=== PATIENT | male | born 1955 | race Caucasian/White ===

== ENCOUNTER 2020-07-26 11:07 | Emergency (ER) | payer MEDICARE, SELFPAY ==
[2020-07-26 11:21] VITALS: BP 139/82; PULSE 104; RESP 14; TEMP 37.2; O2SAT 90; O2SAT 92; BMI 23.1
--- NOTE | 2020-07-26 11:32 | W.ED.COVID ---
HPI - COVID General: Chief Complaint: COVID symptoms Stated Complaint: COVID SYMPTOMS Time Seen by Provider: 07/26/20 11:25 Triage information: Has fever, cough or shortness of breath. Exposure to COVID + person last 14 days History of Present Illness: HPI Narrative: 64-year-old male presents emergency room complaining of shortness of breath and cough. He states he was tested 2 weeks ago for Covid shortness of breath is actually gotten worse he has not had any fever the myalgias have also resolved no diarrhea. Cough has been nonproductive. MD complaint: known COVID positive Prior covid testing: yes, results known COVID 19 common symptoms: positive fever(s), cough, non-productive cough and dyspnea; negative throat pain, nasal congestion, nausea, vomiting or diarrhea COVID 19 other sytmptoms: negative chest pain Severity: moderate Pertinent comorbid conditions: hypertension Treatment prior to arrival: none COVID Results: SARS-CoV-2 Antigen (Rapid) Negative (Negative) 07/26/20 15:49 07/26/20 Review of Systems Const: Reports: fever(s) ENMT: Denies: throat pain, ear or mastoid pain, nasal discharge or nasal congestion Card: Denies: chest pain, edema, dyspnea on exertion or orthopnea Resp: Reports: dyspnea and non-productive cough GI: Denies: abdominal pain, nausea, vomiting, hematemesis, coffee ground emesis, diarrhea, constipation, bloating, hematochezia or melena : Denies: flank pain, dysuria, urinary frequency or urinary urgency Skin/Breast: Denies: rash or pruritus Physical Exam Const: COMMON NORMALS: no acute distress GENERAL APPEARANCE: cooperative and comfortable ORIENTATION/CONSCIOUSNESS: Yes awake, Yes oriented to person, Yes oriented to place and Yes oriented to time HENMT: COMMON NORMALS: normocephalic, atraumatic and hearing grossly normal bilaterally HEAD & SCALP: normocephalic and atraumatic Eye: COMMON NORMALS: Equal, round and reactive pupils present, EOMs intact bilaterally, conjunctivae normal and no scleral icterus CONJUNCTIVA: Yes conjunctivae normal PUPIL: Yes Equal, round and reactive pupils present Neck/C-Spine: COMMON NORMALS: full ROM, no lymphadenopathy, supple and no JVD Lymph: LYMPHATIC: no lymphadenopathy noted and no lymphedema noted Resp: COMMON NORMALS: normal respiratory effort, No retractions, No use of accessory muscles and clear to auscultation bilaterally AUSCULTATION: clear to auscultation bilaterally Cardio: COMMON NORMALS: no JVD, regular rate, regular rhythm and No murmurs present (Cardio) RATE: regular rate RHYTHM: regular rhythm GI: COMMON NORMALS: Soft to palpation and No hepatosplenomegaly present AUSCULTATION: Yes normoactive bowel sounds PALPATION: Yes Soft to palpation, No Tenderness to palpation present (GI), No Guarding due to palpation present (GI) and Yes No hepatosplenomegaly present Extremity: COMMON NORMALS: normal to inspection, capillary refill normal, no clubbing, cyanosis or edema, no calf tenderness and no pedal edema Neuro: SENSORIUM/ORIENTATION: Yes oriented to person, Yes oriented to place and Yes oriented to time Skin: COMMON NORMALS: no rashes or lesions noted GENERAL SKIN EXAM: no rashes or lesions noted Course Vital Signs: Vital signs: Vital Signs Temperature 98.9 F 07/26/20 11:21 Pulse Rate 104 H 07/26/20 11:21 Respiratory Rate 14 07/26/20 11:21 Blood Pressure 139/82 07/26/20 11:21 Pulse Oximetry 90 07/26/20 11:21 MDM - COVID MDM Narrative Medical decision making narrative: Patient actually seems to be rather late in the course of care. He had told us initially that he had been tested at [facility] but he had not his had. We did rapid test him which was negative. We will get a [facility] swab on him. He does qualify for oxygen. We will go ahead and send him home with that we can try to get him back in to see his primary care doctor in the next 1 to 2 days. Lab Data Attestation: I reviewed the patient's lab results. Result diagrams: 07/26/20 11:44 07/26/20 11:44 Labs: Lab Results 07/26/20 07/26/20 07/26/20 Range/Units 11:44 11:44 11:44 WBC 6.0 (4.0-10.0) 10^3/uL RBC 4.92 (4.1-5.3) 10^6/uL Hgb 14.4 (11.7-16.6) g/dL Hct 43.0 (42.0-52.0) % MCV 87.4 (80-94) fL MCH 29.3 (28.0-34.0) pg MCHC 33.5 (30.0-36.0) g/dL RDW 13.2 (12.1-15.1) % Plt Count 240 (130-400) 10^3/cmm MPV 9.5 (7.4-10.4) fL Neut % (Auto) 83.5 % Lymph % (Auto) 9.1 % [place] % (Auto) 6.2 % Eos % (Auto) 0.3 % Baso % (Auto) 0.2 % Neut # (Auto) 4.98 (1.8-7.7) 10^3/uL Lymph # (Auto) 0.5 L (0.8-4.8) 10^3/uL [place] # (Auto) 0.4 (0.2-0.9) 10^3/uL Eos # (Auto) 0.0 (0.0-0.8) 10^3/uL Baso # (Auto) 0.0 (0.0-0.1) 10^3/uL Nucleated RBC % (auto) 0 % Nucleated RBCs # 0.0 /100WBC Specimen Type Sample Site ABG pH (7.35-7.45) ABG pCO2 (35-45) mmHg ABG pO2 (80.0-100.0) mmHg ABG HCO3 (22-26) mmol/L ABG O2 Saturation ABG Base Excess (-2.0-2.0) mmol/L Martinez Test A-a O2 Gradient (5-10) mmHg Hematocrit (42-52) % Hgb O2 Saturation (95-100) % Carboxyhemoglobin (0.4-20.1) %THgb Methemoglobin (0.4-1.5) % Total Hemoglobin (14-18) g/dL Ionized Calcium (1.1-1.4) mmol/L O2 Delivery Device FiO2 % Section Plotter Operator ID Blood Gas Notified Time Sodium 136 (136-145) mmol/L Potassium 3.4 L (3.5-5.1) mmol/L Chloride 94 L (98-107) mmol/L Carbon Dioxide 33 H (22-29) mmol/L Anion Gap 12.4 (5-19) BUN 26 H (8-23) mg/dL Creatinine 1.2 (0.7-1.2) mg/dL GFR Calculation 60.8 L (90-130) mL/min Glucose 108 (65-115) mg/dL Calculated Osmolality 287 (285-295) mOsm/kg Lactic Acid 1.3 (0.5-2.2) mmol/L Calcium 8.8 (8.5-10.5) mg/dL Total Bilirubin 1.0 (0.15-1.2) mg/dL AST 72 H (0-40) U/L ALT 87 H (0-41) U/L Alkaline Phosphatase 153 H (40-130) IU/L Troponin T Baseline (0-15) ng/L Troponin T 120 Minute (0-15) ng/L Delta Troponin T (0-10) ABS# Total Protein 6.7 (6.6-8.7) g/dL Albumin 4.0 (3.5-5.2) g/dL Globulin 2.7 (1.3-4.6) g/dL Urine Color (Yellow) Urine Appearance (CLEAR) Urine pH (5-7) Ur Specific Theresa (1.005-1.030) Urine Protein (Negative) Urine Glucose (UA) (Normal) Urine Ketones (Negative) Urine Blood (Negative) Urine Nitrate (Negative) Urine Bilirubin (Negative) Urine Urobilinogen (Negative) mg/dL Ur Leukocyte Esterase (Negative) SARS-CoV-2 Ag (Rapid) (Negative) 07/26/20 07/26/20 07/26/20 Range/Units 11:44 12:42 13:25 WBC (4.0-10.0) 10^3/uL RBC (4.1-5.3) 10^6/uL Hgb (11.7-16.6) g/dL Hct (42.0-52.0) % MCV (80-94) fL MCH (28.0-34.0) pg MCHC (30.0-36.0) g/dL RDW (12.1-15.1) % Plt Count (130-400) 10^3/cmm MPV (7.4-10.4) fL Neut % (Auto) % Lymph % (Auto) % [place] % (Auto) % Eos % (Auto) % Baso % (Auto) % Neut # (Auto) (1.8-7.7) 10^3/uL Lymph # (Auto) (0.8-4.8) 10^3/uL [place] # (Auto) (0.2-0.9) 10^3/uL Eos # (Auto) (0.0-0.8) 10^3/uL Baso # (Auto) (0.0-0.1) 10^3/uL Nucleated RBC % (auto) % Nucleated RBCs # /100WBC Specimen Type Arterial Sample Site Lr ABG pH 7.50 H (7.35-7.45) ABG pCO2 39.5 (35-45) mmHg ABG pO2 61.5 L (80.0-100.0) mmHg ABG HCO3 30.8 H (22-26) mmol/L ABG O2 Saturation 91.5 ABG Base Excess 7.0 H (-2.0-2.0) mmol/L Martinez Test Pos A-a O2 Gradient 38.9 H (5-10) mmHg Hematocrit 43.3 (42-52) % Hgb O2 Saturation 90.3 L (95-100) % Carboxyhemoglobin 0.9 (0.4-20.1) %THgb Methemoglobin 0.4 (0.4-1.5) % Total Hemoglobin 14.1 (14-18) g/dL Ionized Calcium 1.1 (1.1-1.4) mmol/L O2 Delivery Device Ra FiO2 21.0 % Section Plotter Operator ID Glc Blood Gas Notified Time 1300 Sodium 137.0 (136-145) mmol/L Potassium 3.0 L (3.5-5.1) mmol/L Chloride (98-107) mmol/L Carbon Dioxide (22-29) mmol/L Anion Gap (5-19) BUN (8-23) mg/dL Creatinine (0.7-1.2) mg/dL GFR Calculation (90-130) mL/min Glucose 113.0 (65-115) mg/dL Calculated Osmolality (285-295) mOsm/kg Lactic Acid (0.5-2.2) mmol/L Calcium (8.5-10.5) mg/dL Total Bilirubin (0.15-1.2) mg/dL AST (0-40) U/L ALT (0-41) U/L Alkaline Phosphatase (40-130) IU/L Troponin T Baseline 12 (0-15) ng/L Troponin T 120 Minute (0-15) ng/L Delta Troponin T (0-10) ABS# Total Protein (6.6-8.7) g/dL Albumin (3.5-5.2) g/dL Globulin (1.3-4.6) g/dL Urine Color Yellow (Yellow) Urine Appearance Clear (CLEAR) Urine pH 5 (5-7) Ur Specific Theresa 1.015 (1.005-1.030) Urine Protein Neg (Negative) Urine Glucose (UA) Norm (Normal) Urine Ketones Negative (Negative) Urine Blood Neg (Negative) Urine Nitrate Negative (Negative) Urine Bilirubin Neg (Negative) Urine Urobilinogen 1 H (Negative) mg/dL Ur Leukocyte Esterase Negative (Negative) SARS-CoV-2 Ag (Rapid) (Negative) 07/26/20 07/26/20 Range/Units 15:10 15:49 WBC (4.0-10.0) 10^3/uL RBC (4.1-5.3) 10^6/uL Hgb (11.7-16.6) g/dL Hct (42.0-52.0) % MCV (80-94) fL MCH (28.0-34.0) pg MCHC (30.0-36.0) g/dL RDW (12.1-15.1) % Plt Count (130-400) 10^3/cmm MPV (7.4-10.4) fL Neut % (Auto) % Lymph % (Auto) % [place] % (Auto) % Eos % (Auto) % Baso % (Auto) % Neut # (Auto) (1.8-7.7) 10^3/uL Lymph # (Auto) (0.8-4.8) 10^3/uL [place] # (Auto) (0.2-0.9) 10^3/uL Eos # (Auto) (0.0-0.8) 10^3/uL Baso # (Auto) (0.0-0.1) 10^3/uL Nucleated RBC % (auto) % Nucleated RBCs # /100WBC Specimen Type Sample Site ABG pH (7.35-7.45) ABG pCO2 (35-45) mmHg ABG pO2 (80.0-100.0) mmHg ABG HCO3 (22-26) mmol/L ABG O2 Saturation ABG Base Excess (-2.0-2.0) mmol/L Martinez Test A-a O2 Gradient (5-10) mmHg Hematocrit (42-52) % Hgb O2 Saturation (95-100) % Carboxyhemoglobin (0.4-20.1) %THgb Methemoglobin (0.4-1.5) % Total Hemoglobin (14-18) g/dL Ionized Calcium (1.1-1.4) mmol/L O2 Delivery Device FiO2 % Section Plotter Operator ID Blood Gas Notified Time Sodium (136-145) mmol/L Potassium (3.5-5.1) mmol/L Chloride (98-107) mmol/L Carbon Dioxide (22-29) mmol/L Anion Gap (5-19) BUN (8-23) mg/dL Creatinine (0.7-1.2) mg/dL GFR Calculation (90-130) mL/min Glucose (65-115) mg/dL Calculated Osmolality (285-295) mOsm/kg Lactic Acid (0.5-2.2) mmol/L Calcium (8.5-10.5) mg/dL Total Bilirubin (0.15-1.2) mg/dL AST (0-40) U/L ALT (0-41) U/L Alkaline Phosphatase (40-130) IU/L Troponin T Baseline (0-15) ng/L Troponin T 120 Minute 12.10 (0-15) ng/L Delta Troponin T 0.10 (0-10) ABS# Total Protein (6.6-8.7) g/dL Albumin (3.5-5.2) g/dL Globulin (1.3-4.6) g/dL Urine Color (Yellow) Urine Appearance (CLEAR) Urine pH (5-7) Ur Specific Theresa (1.005-1.030) Urine Protein (Negative) Urine Glucose (UA) (Normal) Urine Ketones (Negative) Urine Blood (Negative) Urine Nitrate (Negative) Urine Bilirubin (Negative) Urine Urobilinogen (Negative) mg/dL Ur Leukocyte Esterase (Negative) SARS-CoV-2 Ag (Rapid) Negative (Negative) COVID Results: SARS-CoV-2 Antigen (Rapid) Negative (Negative) 07/26/20 15:49 07/26/20 Discharge Plan Discharge Patient Disposition: Home Clinical Impression: COVID-19 virus infection Condition: Stable Prescriptions: New dexamethasone 6 mg tablet 6 mg PO DAILY Qty: 7 RF: 0 No Action aspirin 81 mg Tablet,Delayed Release (Dr/Ec) 81 mg PO DAILY RF: 0 Tylenol Extra Strength 500 mg Tablet 1,000 mg PO PRN RF: 0 losartan 25 mg tablet 50 mg PO DAILY RF: 0 Advil 200 mg Tablet 600 mg PO PRN RF: 0 hydrochlorothiazide 25 mg tablet 25 mg PO DAILY RF: 0 fluticasone propionate 50 mcg/actuation spray,suspension 2 spray INTRANASAL DAILY PRN (Reason: unknown) RF: 0 sildenafil (pulm.hypertension) 20 mg tablet 20 - 80 mg PO PRN RF: 0 Adult Multivitamin Gummies 200 mcg Tablet,Chewable 400 mcg PO DAILY RF: 0 Cough Med 5 - 10 ml PO PRN RF: 0 Discharge Orders: Discharge Order (Routine); Ordered 07/26/20 Ordered By: Jeremy Rich Other Ambulatory Orders: DME: Oxygen (Order) Location: None Selected Ordered By: Jeremy Rich Discharge Diet: Usual diet Discharge Activity: Increase activity as tolerated Activity Restrictions/Additional Instructions: Follow-up with your primary care provider in 1 to 2 days. Return if you have any further problems breathing. Coding Level of Care Code ED Slicer Machine Operator for Jada Fwd Exam Comprehensive
--- NOTE | 2020-07-26 11:41 | CT_ITS ---
WS: [id number] CT CHEST ANGIOGRAPHY WITH REFORMATS HISTORY: Dyspnea,, tachycardia TECHNIQUE: Contiguous axial images are obtained through the chest during arterial injection of intrav enous contrast. Images are reconstructed to evaluate the pulmonary arteries. MIP imaging also reviewe d. All CT scans at [facility] use at least one of these dose optimization techniques: aut omated exposure control; mA and/or kV adjustment per patient size (includes targeted exams where dose is matched to clinical indication); or iterative reconstruction. CONTRAST: Omnipaque 350; 95 mL IV. DLP: 591.68 mGy.cm COMPARISON: None available. Excellent opacification of the pulmonary arteries. Normal size pulmonary artery with no pulmonary emb cooper. Moderate atherosclerosis of aorta. No aneurysm or dissection. Hyperinflated lungs. There are bilateral multilobar areas of groundglass opacification with increasin g atelectasis at the lung bases. No pleural effusion. Mildly prominent bilateral hilar lymph nodes me asuring up to 14 mm in diameter. Small hiatal hernia. Hepatic steatosis. : Physis without acute cholecystitis. Atherosclerosis continues into the suprarenal aorta. No osteoblastic or osteolytic bone disease. CT/CT angio chest PE protcl [id number] IMPRESSION: 1. No pulmonary embolism. 2. Multilobar areas of groundglass attenuation. Typical for Covid 19. 3. Chronic emphysema. Next line cholelithiasis without acute cholecystitis. 4. Indeterminate bilateral hilar lymph nodes may be reactive. 5. Mild cardiomegaly.
--- NOTE | 2020-07-26 11:42 | ECG_ITS ---
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 Measurements Intervals [place] Rate: 90 P: 37 W[place]: 167 QRS: -8 QRSD: 91 T: 42 QT: 360 QTc: 441 Interpretive Statements SINUS RHYTHM NONSPECIFIC T-WAVE ABNORMALITY No previous ECG available for comparison Electronically Signed On 07-27-2020 7:18:02 CDT by Stephy Joy M.D. [email or web address] Do Now [facility] Don'tgrand [facility].[employer]/store/[id number] f
--- NOTE | 2020-07-26 11:42 | XR_ITS ---
WS: [id number] Exam: XR chest 1V portable [id number] Date/Time of Exam: 07/26/2020 11:42 AM Reason For Exam: dyspnea/cough No priors. Patchy groundglass infiltrate in the right upper lobe could represent active pneumonia or chronic parisa nge. Remaining lung figueroa are clear. Normal heart size. The mediastinum and bony thorax are intact. XR/XR chest 1V portable [id number] IMPRESSION: 1. Patchy groundglass infiltrates in the right upper lobe that may represent ac tive pneumonia or chronic change.
[2020-07-26 12:16] LABS: Basophils % 0.2 %; Eosinophils % 0.3 %; Hemoglobin 14.4 g/dL (11.7-16.6); Lymphocytes # 0.5 10^3/uL (0.8-4.8); Lymphocytes % 9.1 %; Mean Corpuscular HGB Conc 33.5 g/dL (30.0-36.0); Mean Corpuscular Hemoglobin 29.3 pg (28.0-34.0); Mean Corpuscular Volume 87.4 fL (80-94); Mean Platelet Volume 9.5 fL (7.4-10.4); Monocytes # 0.4 10^3/uL (0.2-0.9); Monocytes % 6.2 %; Neutrophils # 4.98 10^3/uL (1.8-7.7); Neutrophils % 83.5 %; Nucleated Red Blood Cells % 0 %; Platelet Count 240 10^3/cmm (130-400); Red Blood Count 4.92 10^6/uL (4.1-5.3); Red Cell Distribution Width 13.2 % (12.1-15.1)
[2020-07-26 12:23] LABS: Lactic Sepsis W/Reflex 1.3 mmol/L (0.5-2.2)
[2020-07-26 12:24] LABS: Alanine Aminotransferase 87 U/L (0-41); Alkaline Phosphatase 153 IU/L (40-130); Anion Gap 12.4 (5-19); Aspartate Amino Transferase 72 U/L (0-40); Blood Urea Nitrogen 26 mg/dL (8-23); Calcium 8.8 mg/dL (8.5-10.5); Carbon Dioxide 33 mmol/L (22-29); Chloride 94 mmol/L (98-107); Globulin 2.7 g/dL (1.3-4.6); Glomerular Filtration Rate 60.8 mL/min (90-130); Glucose 108 mg/dL (65-115); Osmolality Calculated 287 mOsm/kg (285-295); Potassium 3.4 mmol/L (3.5-5.1); Sodium 136 mmol/L (136-145); Total Protein 6.7 g/dL (6.6-8.7)
[2020-07-26 12:25] LABS: Troponin(5th) Baseline 12 ng/L (0-15)
[2020-07-26 12:54] LABS: ABG PCO2 39.5 mmHg (35-45); Blood Gas Allen Test POS; Blood Gas Operator Identificat GLC; HCO3 ABG 30.8 mmol/L (22-26); Oxygen Saturation ABG 91.5; PO2 ABG 61.5 mmHg (80.0-100.0)
[2020-07-26 12:55] LABS: Alveolar-Arterial Oxygen Gradi 38.9 mmHg (5-10); Arterial Blood Gas Hematocrit 43.3 % (42-52); Blood Gas CCRB Time 1300; Blood Gas Sample Site LR; Blood Gas Sample Type Arterial; Ionized Calcium Level - ABG 1.1 mmol/L (1.1-1.4); Oxygen Device RA; Total Hemoglobin 14.1 g/dL (14-18)
[2020-07-26 12:56] LABS: Carboxyhemoglobin 0.9 %THgb (0.4-20.1); HGB O2 Sat 90.3 % (95-100); Methemoglobin 0.4 % (0.4-1.5)
[2020-07-26] MEDS: iohexol 350 mg/mL 100 mL Btl IV (12:58)
[2020-07-26 13:47] LABS: Add Urine Microscopic? NO; Bilirubin Urine Neg (Negative); Blood Urine Neg (Negative); Glucose Urine UA Norm (Normal); Ketones Urine Negative (Negative); Leukocyte Esterase Urine Negative (Negative); Nitrate Urine Negative (Negative); Protein Urine Neg (Negative); Specific Gravity, Urine 1.015 (1.005-1.030); Urine Appearance Clear (CLEAR); Urine Color Yellow (Yellow); Urobilinogen Urine 1 mg/dL (Negative); pH Urine 5 (5-7)
[2020-07-26 17:01] LABS: SARS Covid-2 Antigen Negative (Negative)
--- NOTE | 2020-07-26 17:31 | PC.NURSE ---
Read and agree with assessment.
[2020-07-26 18:08] VITALS: BP 140/75; PULSE 78; RESP 18; O2SAT 97
--- NOTE | 2020-07-28 10:34 | DCPLANNER ---
circuit manager had message to speak with patient about a follow up appointment. circuit manager called [phone], phone number was no longer in service. circuit manager then called [phone], was told that no one by the name of the patient was there, wrong number. circuit manager unable to speak with patient or leave a voicemail for patient.
[2020-07-28 21:52] LABS: Quest SARS-CoV-2 RNA DETECTED (NOT DETECTED)
--- NOTE | 2020-07-29 16:41 | PC.NURSE ---
this nurse unable to reach pt at any of his numbers listed on face sheet to give COVID results. Letter mailed to inform Pt of results.
--- NOTE | 2020-08-03 08:37 | PC.NURSE ---
pt's called back after receiving letter. results given to pt's .
== END 2020-07-26 18:10 | disposition home or self-care (01) ==
PROVIDERS: Emergency Provider Family Medicine; PCP General Practice
DX: U07.1 COVID-19 (principal); Z79.82 Long term (current) use of aspirin
CPT/HCPCS: 12345; 36600; 71045; 71275; 80051; 80053; 81003; 82810; 83605; 83986; 84484; 85025; 87426; 87635; 93005; 96374; 99284; Q9967

== ENCOUNTER → 2023-11-20 12:40 | Outpatient (BNVA) | payer MEDICARE, SELFPAY | PROVIDERS: PCP Internal Medicine; Referring Provider Internal Medicine; Visit Provider Specialist | DX: R20.0 Anesthesia of skin (principal); R20.2 Paresthesia of skin | CPT/HCPCS: 95911 ==

== ENCOUNTER → 2024-03-12 10:11 | Outpatient (BNVA) | payer MEDICARE, SELFPAY | PROVIDERS: PCP Internal Medicine; Visit Provider Nurse Practitioner Family | DX: D48.5 Neoplasm of uncertain behavior of skin (principal); L57.0 Actinic keratosis; B07.8 Other viral warts; L82.1 Other seborrheic keratosis; D22.5 Melanocytic nevi of trunk; L91.8 Other hypertrophic disorders of the skin | CPT/HCPCS: 11102; 17000; 17110; 99203 ==

== ENCOUNTER → 2024-05-08 11:36 | Outpatient (BNVA) | payer MEDICARE, SELFPAY | PROVIDERS: PCP Internal Medicine; Visit Provider Podiatrist Foot & Ankle Surgery | DX: Q82.8 Other specified congenital malformations of skin; Q66.71 Congenital pes cavus, right foot | CPT/HCPCS: 17110; 73630; 99203 ==

== ENCOUNTER → 2024-06-04 11:28 | Outpatient (BNVA) | payer MEDICARE, SELFPAY | PROVIDERS: PCP Internal Medicine; Visit Provider Podiatrist Foot & Ankle Surgery | DX: Q82.8 Other specified congenital malformations of skin (principal); Q66.71 Congenital pes cavus, right foot | CPT/HCPCS: 99213 ==

== ENCOUNTER 2024-07-08 11:42 | Outpatient (CLI) | payer MEDICARE, SELFPAY ==
--- NOTE | 2024-07-08 | ECG_ITS ---
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 Interpretive Statements EXERCISE STRESS TEST EXERCISE DATA: The patient was exercised by Lee protocol. Baseline heart rate was 71 beats per minute. Baseline blood pressure was 159/95 millimeters of mercury. Maximal predicted heart rate [id number] beats per minute. Maximum heart rate achieved was 132 which was 87 % of the maximum predicted heart rate. Maximum blood pressure tay066/77 millimeters of mercury. Total exercise time was 6 minutes and 29 seconds. Maximum METs achieved was 10.2. The reason for ending the test was maximal effort achieved. The patient complained of shortness of breath during the stress test, which then resolved at the end of the test. ELECTROCARDIOGRAM: BASELINE: Showed sinus rhythm, normal axis, no significant ST-T changes at the baseline noted. [] EXERCISE: At the peak exercise level, [] significant [address] depressions seen in leads V2-6 and I and aVL. Non specific ST elevation seen in the lead aVR. RECOVERY: During the recovery period, heart rate dropped appropriately. T wave inversions were seen in leads V4 to V6 and I and aVL. CONCLUSION: 1. Exercise capacity is good 2. Heart rate response was appropriate. 3. Blood pressure response was appropriate. 4. Symptoms not suggestive of ischemia. 5. Stress test is abnormal suggesting ischemia. Electronically Signed On 07-11-2024 20:35:20 CDT by Juan Gray M.D. [id number]
[2024-07-08 11:50] VITALS: BMI 25.0
[2024-07-08 12:07] VITALS: BP 173/87; PULSE 84
== END 2024-07-08 11:43 | disposition home or self-care (01) ==
PROVIDERS: PCP Internal Medicine; Visit Provider Nurse Practitioner Family
DX: R07.9 Chest pain, unspecified (principal); R06.09 Other forms of dyspnea
CPT/HCPCS: 93017

== ENCOUNTER 2024-11-29 10:25 | Outpatient (RCR) | payer MEDICARE, SELFPAY | END 2024-12-29 23:59 | disposition home or self-care (01) | LOC: CR 10:25 | PROVIDERS: PCP Internal Medicine; Referring Provider Thoracic Surgery (Cardiothoracic Vascular Surgery); Visit Provider Thoracic Surgery (Cardiothoracic Vascular Surgery) | DX: Z95.1 Presence of aortocoronary bypass graft (principal) | CPT/HCPCS: 93798 ==

== ENCOUNTER 2024-12-30 12:49 | Outpatient (RCR) | payer MEDICARE, SELFPAY | END 2025-01-28 23:59 | disposition home or self-care (01) | LOC: CR 12:49 | PROVIDERS: PCP Internal Medicine; Referring Provider Thoracic Surgery (Cardiothoracic Vascular Surgery); Visit Provider Thoracic Surgery (Cardiothoracic Vascular Surgery) | DX: Z95.1 Presence of aortocoronary bypass graft (principal) | CPT/HCPCS: 93798 ==

== ENCOUNTER 2025-01-29 10:19 | Outpatient (RCR) | payer SELFPAY | END 2025-02-28 23:59 | disposition home or self-care (01) | LOC: CR 10:19 | PROVIDERS: PCP Internal Medicine; Referring Provider Thoracic Surgery (Cardiothoracic Vascular Surgery); Visit Provider Thoracic Surgery (Cardiothoracic Vascular Surgery) | DX: Z95.1 Presence of aortocoronary bypass graft (principal) ==

== ENCOUNTER 2025-02-09 12:53 | Outpatient (CLI) | payer MEDICARE, OTHER, SELFPAY ==
--- NOTE | 2025-02-09 13:10 | CTR_ITS ---
PROCEDURE INFORMATION: Exam: CT Chest With Contrast; Diagnostic Exam date and time: 02/09/2025 2:33 PM Age: 69 years old Clinical indication: Prior surgery; Surgery date: 1-6 months; Surgery type: Heart 08/2024, hernia x 2; Fever 101 degrees intermittently since heart bypass surgery sep 17. ; Additional info: Fever of unknown origin TECHNIQUE: Imaging protocol: Diagnostic computed tomography of the chest with contrast. Radiation optimization: All CT scans at this facility use at least one of these dose optimization techniques: automated exposure control; mA and/or kV adjustment per patient size (includes targeted exams where dose is matched to clinical indication); or iterative reconstruction. Contrast material: OMNI 350; Contrast volume: 100 ml; Contrast route: INTRAVENOUS (IV); COMPARISON: CT angio chest PE protcl [id number] 07/26/2020 12:51 PM RADIATION DOSE METRICS: Total DLP (mGy-cm): 946.17 FINDINGS: Lungs: Minimal ground-glass opacities in the right lower lobe. The largest is 8 mm in size. Pleural spaces: Unremarkable. No pneumothorax. No pleural effusion. Heart: Unremarkable. No cardiomegaly. No pericardial effusion. Coronary arteries: Coronary artery calcifications. Lymph nodes: Unremarkable. No enlarged lymph nodes. Vasculature: Unremarkable. No aortic aneurysm. Bones/joints: Unremarkable. No acute fracture. Soft tissues: Unremarkable. CT Chest at 3 years and 5 years. (Reference: Jimmy) References: Jimmy Stephens et al. Guidelines for Management of Incidental Pulmonary Nodules Detected on CT Images: From the Fleischner Society 2017. Radiology. 2017;284(1):228-243. PROCEDURE INFORMATION: Exam: CT Abdomen And Pelvis With Contrast Exam date and time: 02/09/2025 2:33 PM Age: 69 years old Clinical indication: Prior surgery; Surgery date: 1-6 months; Surgery type: Heart 08/2024, hernia x 2; Fever 101 degrees intermittently since heart bypass surgery sep 17. ; Additional info: Fever of unknown origin TECHNIQUE: Imaging protocol: Computed tomography of the abdomen and pelvis with contrast. Radiation optimization: All CT scans at this facility use at least one of these dose optimization techniques: automated exposure control; mA and/or kV adjustment per patient size (includes targeted exams where dose is matched to clinical indication); or iterative reconstruction. Contrast material: OMNI 350; Contrast volume: 100 ml; Contrast route: INTRAVENOUS (IV); COMPARISON: CT angio chest PE protcl [id number] 07/26/2020 12:51 PM RADIATION DOSE METRICS: Total DLP (mGy-cm): 946.17 FINDINGS: Liver: Normal. No mass. Gallbladder and biliary ducts: Cholelithiasis. Mild thickening of the wall of the gallbladder. Ultrasound recommended to evaluate for cholecystitis. Pancreas: Normal. No ductal dilation. Spleen: Normal. No splenomegaly. Adrenal glands: Normal. No mass. Kidneys and ureters: Atrophic left kidney. Right renal cyst. Stomach and bowel: Diverticulosis without evidence of diverticulitis. Appendix: No evidence of appendicitis. Intraperitoneal space: Unremarkable. No free air. No significant fluid collection. Vasculature: Unremarkable. No abdominal aortic aneurysm. Lymph nodes: Unremarkable. No enlarged lymph nodes. Urinary bladder: Unremarkable as visualized. Reproductive: Unremarkable as visualized. Bones/joints: Unremarkable. No acute fracture. Soft tissues: Unremarkable. CT/CT chest abdpel w/*[id number] IMPRESSION: Minimal left lower lobe ground-glass opacities. Recommend CT Chest at 6-12 months to confirm persistence of the nodule, then IMPRESSION: Cholelithiasis with a possibly thickened gallbladder wall. Ultrasound recommended. COMMENTS: Consistent with the [place] [employer]'s Incidental Findings Committee white paper (J Am Marvin Radiol 2018): Any incidental renal lesion less than 1 cm or classified as too small to characterize, or any incidental cystic renal lesion characterized as simple-appearing, is likely benign. No follow-up imaging is recommended for these lesions per consensus recommendations based on imaging criteria.
[2025-02-09] MEDS: iohexol 350 mg/mL 500 mL Btl (per mL) PO (14:46)
[2025-02-09] MEDS: iohexol 350 mg/mL 500 mL Btl (per mL) IV (14:47)
== END 2025-02-09 12:54 | disposition home or self-care (01) ==
PROVIDERS: PCP Internal Medicine; Visit Provider Nurse Practitioner Family
DX: R50.9 Fever, unspecified (principal); I25.10 Atherosclerotic heart disease of native coronary artery without angina pectoris; K80.20 Calculus of gallbladder without cholecystitis without obstruction; R93.3 Abnormal findings on diagnostic imaging of other parts of digestive tract; N26.1 Atrophy of kidney (terminal); N28.1 Cyst of kidney, acquired; K57.30 Diverticulosis of large intestine without perforation or abscess without bleeding
CPT/HCPCS: 71260; 74177

== ENCOUNTER → 2025-02-17 11:45 | Outpatient (BNVA) | payer MEDICARE, OTHER, SELFPAY | PROVIDERS: PCP Internal Medicine; Visit Provider Student in an Organized Health Care Education/Training Program | DX: R50.9 Fever, unspecified (principal); Z21 Asymptomatic human immunodeficiency virus [HIV] infection status | CPT/HCPCS: 36415; 81001; 86160; 86480; 86592; 86611; 86612; 86618; 86635; 86664; 86665; 86666; 86668; 86698; 86705; 86706; 86709; 86757; 86780; 86803; 87040; 87340; 87385; 87491; 87591; 87806 ==

== ENCOUNTER 2025-03-03 10:46 | Outpatient (RCR) | payer SELFPAY | END 2025-03-30 23:59 | disposition home or self-care (01) | LOC: CR 10:46 | PROVIDERS: PCP Internal Medicine; Referring Provider Thoracic Surgery (Cardiothoracic Vascular Surgery); Visit Provider Thoracic Surgery (Cardiothoracic Vascular Surgery) | DX: Z95.1 Presence of aortocoronary bypass graft (principal) ==

== ENCOUNTER → 2025-03-03 11:00 | Outpatient (BNVA) | payer MEDICARE, OTHER, SELFPAY | PROVIDERS: PCP Internal Medicine; Visit Provider Student in an Organized Health Care Education/Training Program | DX: Z09 Encounter for follow-up examination after completed treatment for conditions other than malignant neoplasm (principal) | CPT/HCPCS: 99212 ==

== ENCOUNTER 2025-03-31 09:40 | Outpatient (RCR) | payer SELFPAY | END 2025-04-30 23:59 | disposition home or self-care (01) | LOC: CR 09:40 | PROVIDERS: PCP Internal Medicine; Referring Provider Thoracic Surgery (Cardiothoracic Vascular Surgery); Visit Provider Thoracic Surgery (Cardiothoracic Vascular Surgery) | DX: Z95.1 Presence of aortocoronary bypass graft (principal) ==

== ENCOUNTER 2025-05-01 14:28 | Outpatient (RCR) | payer SELFPAY | END 2025-05-31 23:59 | disposition home or self-care (01) | LOC: CR 14:28 | PROVIDERS: PCP Internal Medicine; Referring Provider Thoracic Surgery (Cardiothoracic Vascular Surgery); Visit Provider Thoracic Surgery (Cardiothoracic Vascular Surgery) | DX: Z95.1 Presence of aortocoronary bypass graft (principal) ==

== ENCOUNTER → 2025-05-18 08:01 | Outpatient (BNVA) | payer MEDICARE, OTHER, SELFPAY | PROVIDERS: PCP Internal Medicine; Visit Provider Internal Medicine | DX: E27.9 Disorder of adrenal gland, unspecified (principal); I10 Essential (primary) hypertension; R79.89 Other specified abnormal findings of blood chemistry | CPT/HCPCS: 36415; 80053; 82088; 84244; 99204 ==

== ENCOUNTER 2025-05-20 08:44 | Outpatient (CLI) | payer MEDICARE, OTHER, SELFPAY ==
[2025-05-20 09:59] LABS: Creatinine 24 Hour Urine 1750.0 mg/dL (955-2936); Total Volume Urine 2500 ml
== END 2025-05-20 08:45 | disposition home or self-care (01) ==
PROVIDERS: PCP Internal Medicine; Visit Provider Internal Medicine
DX: R79.89 Other specified abnormal findings of blood chemistry (principal); E27.9 Disorder of adrenal gland, unspecified
CPT/HCPCS: 82384; 82530; 82570; 83835

== ENCOUNTER 2025-06-02 12:50 | Outpatient (RCR) | payer SELFPAY | END 2025-06-30 23:59 | disposition home or self-care (01) | LOC: CR 12:50 | PROVIDERS: PCP Internal Medicine; Referring Provider Thoracic Surgery (Cardiothoracic Vascular Surgery); Visit Provider Thoracic Surgery (Cardiothoracic Vascular Surgery) | DX: Z95.1 Presence of aortocoronary bypass graft (principal) ==

== ENCOUNTER 2025-07-01 12:40 | Outpatient (RCR) | payer SELFPAY | END 2025-07-31 23:59 | disposition home or self-care (01) | LOC: CR 12:40 | PROVIDERS: PCP Internal Medicine; Referring Provider Thoracic Surgery (Cardiothoracic Vascular Surgery); Visit Provider Thoracic Surgery (Cardiothoracic Vascular Surgery) | DX: Z95.1 Presence of aortocoronary bypass graft (principal) ==

== ENCOUNTER 2025-08-01 13:54 | Outpatient (RCR) | payer SELFPAY | END 2025-08-30 23:59 | disposition home or self-care (01) | LOC: CR 13:54 | PROVIDERS: PCP Internal Medicine; Referring Provider Thoracic Surgery (Cardiothoracic Vascular Surgery); Visit Provider Thoracic Surgery (Cardiothoracic Vascular Surgery) | DX: Z95.1 Presence of aortocoronary bypass graft (principal) ==

== ENCOUNTER 2025-08-19 07:01 | Outpatient (CLI) | payer MEDICARE, OTHER, SELFPAY ==
--- NOTE | 2025-08-19 07:09 | USCV_ITS ---
Calixto Hope Age: 70 Gender: M : 1955 Exam Date: 08/19/2025 07:23 Ordering Phys: Josh Charles DO Technologist: Exam Location: [facility] [place] Indication: cp cad BP: 140 / 70 HR: 68 Rhythm: Sinus Technical Quality: Adequate MEASUREMENTS (Male / Female) Normal Values 2D ECHO LV Diastolic Diameter PLAX 4.6 cm 4.2 - 5.9 / 3.9 - 5.3 cm IVS Diastolic Thickness 1.5 cm 0.6 - 1.0 / 0.6 - 0.9 cm IVS Systolic Thickness 1.8 cm LVPW Diastolic Thickness 1.2 cm 0.6 - 1.0 / 0.6 - 0.9 cm LVPW Systolic Thickness 1.9 cm LVOT Diameter 2.1 cm LV Ejection Fraction 2D Teich 65.6 % LV Ejection Fraction MOD 4C 54.5 % LV Ejection Fraction MOD 2C 67.1 % LV Ejection Fraction 2C AL 68.8 % LA Diameter 4.3 cm RA Systolic Volume 4C AL 47.5 ml RA Systolic Volume 4C MOD 46.8 ml LA Sys Volume AL 67.0 cm cubed LA Sys Volume Index AL 31.7 cm cubed/m squared Aorta at Sinotubular Diameter 3.6 cm IVC Diameter 1.7 cm M-MODE LA Ao Ratio MM 1.5 AV Cusp Separation MM 2.2 cm DOPPLER AV Peak Velocity 138.0 cm/s LVOT Peak Velocity 82.0 cm/s AV Area Cont Eq vti 3.0 cm squared AV Area Cont Eq pk 2.1 cm squared MV Peak Velocity 135.0 cm/s MV Area PHT 3.0 cm squared Mitral E to A Ratio 0.8 TR Peak Velocity 163.0 cm/s TR Peak Gradient 10.6 mmHg TV Peak E Velocity 74.0 cm/s PV Peak Velocity 117.0 cm/s FINDINGS Left Ventricle Normal left ventricular size and systolic function, EF 55-60%. No regional wall motion abnormalities. Moderate left ventricular hypertrophy. Grade 1 diastolic dysfunction. Right Ventricle Normal right ventricular size and systolic function. Right Atrium Normal right atrial size. Left Atrium Normal left atrial size. IA Septum Grossly normal Mitral Valve Structurally normal mitral valve. Mild mitral regurgitation Aortic Valve Structurally normal aortic valve. No significant stenosis or regurgitation. Tricuspid Valve Insufficient TR jet to calculate RVSP. Pulmonic Valve Mild pulmonic regurgitation Pericardium Normal Aorta Normal in size IVC Appears to be normal CONCLUSIONS LV systolic function is normal with EF of 55-60% Grade 1 diastolic dysfunction Moderate left ventricular hypertrophy. Mild mitral regurgitation Mild pulmonic regurgitation Juan Gray MD (Electronically Signed) Final Date: 22 August 2025 13:28 S
== END 2025-08-19 07:02 | disposition home or self-care (01) ==
LOC: RAD 07:03
PROVIDERS: PCP Electrodiagnostic Medicine; Visit Provider Electrodiagnostic Medicine
DX: R01.1 Cardiac murmur, unspecified (principal); I51.89 Other ill-defined heart diseases; I51.7 Cardiomegaly; I34.0 Nonrheumatic mitral (valve) insufficiency; I37.1 Nonrheumatic pulmonary valve insufficiency
CPT/HCPCS: 93306

== ENCOUNTER 2025-08-31 12:47 | Outpatient (RCR) | payer SELFPAY | END 2025-09-30 23:59 | disposition home or self-care (01) | LOC: CR 12:47 | PROVIDERS: PCP Electrodiagnostic Medicine; Referring Provider Thoracic Surgery (Cardiothoracic Vascular Surgery); Visit Provider Thoracic Surgery (Cardiothoracic Vascular Surgery) | DX: Z95.1 Presence of aortocoronary bypass graft (principal) ==